=== PATIENT | male | born 1995 | race Two or more races ===

== ENCOUNTER 2021-03-22 00:20 | Emergency (ER) | payer OTHER ==
[~2021-03-22] VITALS: Ht 177.8 cm; Wt 72.6 kg
[2021-03-22] MEDS ORDERED: VISTARIL25 MG PO (03:30)
== END 2021-03-22 03:40 | disposition home or self-care (01) ==
LOC: ER 00:20 → EDBD 01:06 → ER 01:06
DX: F12.929 Cannabis use, unspecified with intoxication, unspecified (principal); F10.980 Alcohol use, unspecified with alcohol-induced anxiety disorder; F41.0 Panic disorder [episodic paroxysmal anxiety]